=== PATIENT | female | born 1990 | race Two or more races ===

== ENCOUNTER 2021-03-26 20:43 | Emergency (ER) | payer MEDICAID, SELFPAY ==
[2021-03-26 21:04] VITALS: BP 119/83; PULSE 95; RESP 16; TEMP 36.9; O2SAT 97; BMI 26.9
--- NOTE | 2021-03-26 22:08 | ED.FALL ---
HPI - Fall General Chief Complaint: Wound/Laceration Stated Complaint: fall/head inj Time Seen by Provider: 03/26/21 21:49 Source: patient Mode of arrival: ambulatory Limitations: no limitations History of Present Illness HPI Narrative: 30 y/o female presenting to the ER with a painful lump on the back of her head after she slipped on the steps and hit the back of her head. There was some bleeding and a palpable bump almost immediately. She did not lose consciousness. She did not hurt her neck. She has no headache but just aching at the area that she hit. She has been icing it since arrival. No vision changes, confusion, nausea, vomiting or fatigue. MD complaint: fall Onset (ago): hour(s) Fall from: standing Fall witnessed: yes, by family Place fall occurred: home Loss of consciousness: none Prolonged down time: no Symptoms prior to fall: none Context: tripped/slipped Location of injury: head Severity: mild Severity scale (1-10): 4 Quality: aching Associated symptoms (after fall): denies Related Data Allergies Allergy/AdvReac Type Severity Reaction Status Date / Time Benadryl Allergy Allergy Unknown hives Uncoded 03/26/21 21:08 Penicillin Allergy Unknown hives Uncoded 03/26/21 21:08 Review of Systems Review of Systems: Constitutional: No Fever, No Chills ENT/Mouth: No dental trauma Eyes: No Vision changes Cardiovascular: No Chest Pain, No SOB, Respiratory: No Cough, No Sputum, Gastrointestinal: No Nausea, No Vomiting, No abdominal Pain, Musculoskeletal: No joint pain, No Myalgias Skin: + Skin Lesions, No rash Neuro: No Weakness, No Numbness, No Dizziness, No Headache Psych: No Anxiety/Panic, No Depression Heme/Lymph: No Bruising, No Lymphadenopathy PMFSH Past Medical History Attestation statement: The following information was validated with the patient. Medical History Asthma No known health problems Social History Social History Advance Directives: No Advance Directives Information Provided: No Physical Exam Vital Signs: Vital Signs: Last Vital Signs Temp 98.5 F 03/26/21 21:04 Pulse 95 03/26/21 21:04 Resp 16 03/26/21 21:04 BP 119/83 03/26/21 21:04 Pulse Ox 97 07/21/21 21:04 Body Mass Index 26.9 Appearance: Alert. Oriented X3. No acute distress. HEENT: occipitial area of her scalp with a small hematoma and superfiical abrasion with slight oozing, no laceration, no ecchymosis, no palpable skull fracture. PERRL, EOMI. CVS: Normal heart rate and rhythm. Pulses normal. Respiratory: No respiratory distress. Skin: Skin warm and dry. Normal skin color. Normal skin turgor. No rashes. Extremities: atraumatic, no edema. Neuro: Oriented X 3. No motor deficit. No sensory deficit. Course Course Course Narrative: 30 y/o female presenting with minor occipital head trauma after slip and wall on wooden stairs without LOC. Exam reveals small hematoma without wound that would require closure. Possible mild concussion. Local would care discussed as well as brain rest. She is stable for discharge home with supportive care and outpatient follow up. Critical Care Time Critical Care Time Critical Care Time: No Discharge Plan Discharge Clinical Impression: Hematoma Patient Disposition: Home, Self-Care Instructions: Hematoma (ED) Additional Instructions: Use ice several times per day to help with pain and swelling. Take Motrin and/or Tylenol as needed for pain. You can gently wash the area with soap and water, if bleeding occurs hold direct pressure for 5-10 minutes. Follow up with your doctor as needed. Avoid screen time and rest, both mentally and physically. Stand Alone Forms: Work/School Release Discharge Date/Time: 03/26/21 22:16
== END 2021-03-26 22:16 | disposition home or self-care (01) ==
PROVIDERS: Emergency Provider Emergency Medicine; PCP Internal Medicine
DX: S00.03XA Contusion of scalp, initial encounter (principal); W10.9XXA Fall (on) (from) unspecified stairs and steps, initial encounter; Y93.9 Activity, unspecified; Y92.9 Unspecified place or not applicable; Y99.9 Unspecified external cause status
CPT/HCPCS: 99283